=== PATIENT | female | born 1950 | race Caucasian/White ===

== ENCOUNTER → 2022-04-22 12:39 | Outpatient (REF) | payer OTHER, SELFPAY | LOC: MRI 12:39 | PROVIDERS: ATTENDING PHYSICIAN Family Medicine | DX: Z13.89 Encounter for screening for other disorder (principal); Z82.49 Family history of ischemic heart disease and other diseases of the circulatory system | CPT/HCPCS: 70544 ==

== ENCOUNTER → 2023-08-01 06:22 | Day surgery (SDC) | payer OTHER, SELFPAY | LOC: GI 06:22 | PROVIDERS: ATTENDING PHYSICIAN Internal Medicine Gastroenterology; FAMILY PHYSICIAN Family Medicine | DX: Z12.11 Encounter for screening for malignant neoplasm of colon (principal); D12.2 Benign neoplasm of ascending colon; D12.4 Benign neoplasm of descending colon; K57.30 Diverticulosis of large intestine without perforation or abscess without bleeding; K64.8 Other hemorrhoids; K22.89 Other specified disease of esophagus; K44.9 Diaphragmatic hernia without obstruction or gangrene; K31.7 Polyp of stomach and duodenum; R12 Heartburn; Z86.010 Personal history of colon polyps | CPT/HCPCS: 45380; 43239; 88305; 88342 ==